=== PATIENT | female | born 1985 | race Caucasian/White ===

== ENCOUNTER → 2016-08-21 | Outpatient (CLI) | payer MEDICAID | END | disposition home or self-care (01) | LOC: CFH 12:11 | PROVIDERS: ATTEND Registered Nurse | DX: R60.0 Localized edema (principal) ==

== ENCOUNTER 2017-01-05 12:46 | Emergency (ER) | payer MEDICAID ==
[~2017-01-05] VITALS: Ht 167.6 cm; Wt 75.8 kg
[2017-01-05] MEDS ORDERED: SODIUM CHLORIDE 0.9% 1,000ML IVBOLUS ONE (14:00)
[2017-01-05] MEDS ORDERED: SODIUM CHLORIDE FLUSH 10ML SYR IVF ONE (14:00)
[2017-01-05 14:28] LABS: WHITE BLOOD COUNT 5.2 x10^3/uL (3.4-10)
[2017-01-05 14:41] LABS: BLOOD UREA NITROGEN 10 mg/dL (7-18)
[2017-01-05 14:44] VITALS: BP 118/68
== END 2017-01-05 15:18 | disposition home or self-care (01) ==
LOC: ED 14:30
DX: R55 Syncope and collapse (principal)
CPT/HCPCS: 36415; 71020; 80048; 82040; 84703; 85025; 93005; 96360; 96361; 99285; J7030

== ENCOUNTER 2019-12-22 08:40 | Emergency (ER) | payer MEDICAID ==
[~2019-12-22] VITALS: Ht 167.6 cm; Wt 59.0 kg
--- NOTE | 2019-12-22 08:54 | NUR ---
[facility] - [phone]
[2019-12-22 08:55] VITALS: BP 104/76
[2019-12-22] MEDS ORDERED: PLEASE ENTER HEIGHT AND WEIGHT MC SCH (09:00)
[2019-12-22] MEDS ORDERED: ZIPRASIDONE 20 MG INJ IM ONE (09:00)
[2019-12-22 09:28] LABS: BASOPHILS % (AUTO) 1 % (0-1); EOSINOPHILS % (AUTO) 2 % (1-7); LYMPHOCYTES % (AUTO) 40 % (22-44); MEAN CORPUSCULAR HEMOGLOBIN 32.9 pg (27.0-34.8); MEAN CORPUSCULAR HGB CONC 33.6 g/dL (32.4-35.8); MONOCYTES % (AUTO) 9 % (2-9); NEUTROPHILS % (AUTO) 48 % (42-75); PLATELET COUNT 225 x10^3/uL (130-400); RED BLOOD COUNT 4.55 x10^6/uL (3.82-5.3); RED CELL DISTRIBUTION WIDTH 13.9 % (9.6-15.2)
[2019-12-22 09:30] LABS: MD NO
[2019-12-22 09:39] LABS: ALBUMIN 3.9 g/dL (3.4-5.0); ANION GAP 5 mmol/L (5-15); CALCIUM 8.9 mg/dL (8.5-10.1); CHLORIDE 108 mmol/L (98-107)
[2019-12-22 09:44] LABS: ALANINE AMINOTRANSFERASE 29 U/L (12-78); ALKALINE PHOSPHATASE 66 U/L (45-117); BILIRUBIN,TOTAL 0.3 mg/dL (0.2-1.0); TOTAL PROTEIN 7.3 g/dL (6.4-8.2)
[2019-12-22 09:50] LABS: AMPHETAMINE SCREEN, URINE Negative (Negative); BARBITURATE SCREEN, URINE Negative (Negative); BENZODIAZEPINE SCREEN, URINE Negative (Negative); CANNABINOID SCREEN, URINE Negative (Negative); COCAINE SCREEN, URINE Negative (Negative); METHADONE SCREEN, URINE Negative (Negative); OPIATE SCREEN, URINE Negative (Negative)
--- NOTE | 2019-12-22 10:00 | NUR ---
Per pt request. RN discussed with mother dosage for Invega. Pt on max dose. Due for injection . Mother was not allowed back to visit pt per pt request. MOTHER REPORTS: Pt was on Invega in past for years but had side effects. Pt was placed on Vraylar due to side effects per mother report, but it did not help psych symptoms. Pt was placed back on Invega, but still having some "bad days" per mother. Pt's psych MD is attempting to titrate dose down. Mother stated she contacted case management to help with placement for pt b/c she "can't take it anymore". Pt is upset b/c she does not want to be placed in a [facility]ci. PA notified of pt history per mother report.
--- NOTE | 2019-12-22 10:20 | NUR ---
Pt doesn't know why she is here. Pt has Invega injection scheduled for . Pt on phone with primary provider. Pt does not want to switch her dose for medication. She reports no hallucinations. Pt A+OX4. Pt stated she was only here to have her "lungs checked". Pt does report she would like to be in charge of her own medications and find a place to live since her mother is "trying to put her in a assisted". RN to discuss plan of care with JALEEL.
--- NOTE | 2019-12-22 10:40 | NUR ---
Pt agrees to stay to talk to psych in regards of wanting to be in control of her own medications and possibly receive resources on places she could go since she does not want to live with her mother.
--- NOTE | 2019-12-22 11:20 | NUR ---
Meal ordered for pt.
--- NOTE | 2019-12-22 12:21 | NUR ---
PT belongings placed in bag and locked up. Pt in gown. Given snacks. No complaints at this time. WCTM.
--- NOTE | 2019-12-22 13:39 | NUR ---
Rapid nasal COVID swab obtained and walked to lab.
--- NOTE | 2019-12-22 14:49 | NUR ---
PT TOLD SHE IS A LEGAL HOLD SO SHE CANNOT LEAVE. PSYCH NOTIFIED. SITTER AT BEDSIDE.
[2019-12-22] MEDS ORDERED: LORazepam 1MG TABLET ONE (15:00)
[2019-12-22] MEDS ORDERED: NICOTINE 14MG/24 HR PATCH.TD24 TD ONE (15:00)
[2019-12-22] MEDS ORDERED: NICOTINE 14MG/24 HR PATCH.TD24 ONE (15:00)
[2019-12-22] MEDS ORDERED: LORazepam 1MG TABLET PO ONE (15:00)
--- NOTE | 2019-12-22 15:03 | NUR ---
BREAK NURSE NOTE: MEDICATED PER EMAR. DENIES ANY ADDITIONAL NEEDS AT THIS TIME.
--- NOTE | 2019-12-22 16:00 | NUR ---
Report given to PARKER Hernandez.
== END 2019-12-22 23:23 ==
LOC: ED 09:25
DX: F29 Unspecified psychosis not due to a substance or known physiological condition (principal); F22 Delusional disorders; R05 Cough; Z91.14 Patient's other noncompliance with medication regimen
CPT/HCPCS: 36415; 71046; 80053; 80307; 84703; 85025; 87426; 99285

== ENCOUNTER 2019-12-22 15:41 | Inpatient (IN) | payer MEDICAID ==
[~2019-12-22] VITALS: Ht 167.6 cm; Wt 60.6 kg
[2019-12-22] MEDS ORDERED: ONDANSETRON ODT 4 MG PO PRN (16:00)
[2019-12-22] MEDS ORDERED: ACETAMINOPHEN 325 MG TABLET PO PRN (16:00)
[2019-12-22 17:31] VITALS: BP 114/76
[2019-12-22] MEDS ORDERED: HYDROXYZINE PAMOATE 50MG CAP PO PRN (18:30)
[2019-12-22 19:54] VITALS: BP 116/83
[2019-12-22] MEDS: LORazepam 0.5MG TABLET PO PRN (20:35)
[2019-12-23] MEDS ORDERED: DOCUSATE 100 MG CAPSULE ONE (01:08)
[2019-12-23] MEDS ORDERED: DOCUSATE 100 MG CAPSULE PO PRN (01:30)
[2019-12-23] MEDS: LORazepam 0.5MG TABLET PO PRN ×3 (06:14→19:39)
[2019-12-23 06:52] LABS: FREE T4 (FREE THYROXINE) 0.95 ng/dL (0.76-1.46)
[2019-12-23 07:41] VITALS: BP 103/67
[2019-12-23] MEDS ORDERED: NICOTINE 21 MG/24 HR PATCH.TD24 ONE (10:48)
[2019-12-23] MEDS: NICOTINE 21 MG/24 HR PATCH.TD24 TD SCH (10:57)
[2019-12-23] MEDS ORDERED: NICOTINE 21 MG/24 HR PATCH.TD24 TD SCH (11:00)
[2019-12-23] MEDS ORDERED: PALIPERIDONE PALMITATE 234 MG/1.5 ML IM ONE (16:30)
[2019-12-23] MEDS: DOCUSATE 100 MG CAPSULE PO PRN (16:52)
[2019-12-23 19:31] VITALS: BP 111/74
[2019-12-23 21:02] LABS: MICROSCOPIC NOT IND
[2019-12-24 06:58] LABS: CHOL/HDL RATIO 2.1; LDL/HDL RATIO 0.9 (0.5-3.0)
[2019-12-24 07:16] VITALS: BP 102/67
[2019-12-24] MEDS ORDERED: PALIPERIDONE PALMITATE 234 MG/1.5 ML IM ONE ×2 (09:00→12:00)
[2019-12-24] MEDS: NICOTINE 21 MG/24 HR PATCH.TD24 TD SCH (09:00)
[2019-12-24] MEDS: DOCUSATE 100 MG CAPSULE PO PRN (12:09)
[2019-12-24 19:50] VITALS: BP 94/56
[2019-12-24] MEDS: LORazepam 0.5MG TABLET PO PRN (22:43)
[2019-12-25 07:45] VITALS: BP 102/73
[2019-12-25] MEDS: LORazepam 0.5MG TABLET PO PRN ×2 (08:36→20:30)
[2019-12-25] MEDS: NICOTINE 21 MG/24 HR PATCH.TD24 TD SCH (08:44)
[2019-12-25] MEDS ORDERED: PALI234D IM (13:24)
[2019-12-25] MEDS ORDERED: NICO-487 TD (13:24)
[2019-12-25] MEDS ORDERED: HYDR50CA2 PO (13:24)
[2019-12-25 20:24] VITALS: BP 90/58
== END 2019-12-26 07:00 | disposition home or self-care (01) | DRG 885 ==
LOC: 3E 15:41
PROVIDERS: ADMIT Psychiatry & Neurology Psychosomatic Medicine; ATTEND Psychiatry & Neurology Psychosomatic Medicine
DX: F25.0 Schizoaffective disorder, bipolar type (principal); F50.2 Bulimia nervosa; F17.210 Nicotine dependence, cigarettes, uncomplicated; Z91.19 Patient's noncompliance with other medical treatment and regimen; Z88.8 Allergy status to other drugs, medicaments and biological substances
CPT/HCPCS: 36415; 80061; 81003; 84439; 84443; 93005; J2426